=== PATIENT | female | born 1985 | race Caucasian/White ===

== ENCOUNTER 2017-05-02 23:09 | Emergency (ER) | payer BC, MEDICAID ==
--- NOTE | 2017-05-02 23:31 | ED Physician Chart ---
Chief Complaint/HPI - Patient Information Date Seen:: 05/02/17 Time Seen:: 23:20 Chief Complaint:: Abdominal Pain History of Present Illness:: onset x 12 hours of intermittent, crampy, generalized Abdominal pain; pt denies H/As, Neck Pain, C/P, cough, SOB, A/N/V/D/C, bleeding, melena, hematochezia, hematemesis, vaginal bleeding, fever, chills, or urinary s/s; LNMP: one month ago Allergies:: Allergies Allergy/AdvReac Type Severity Reaction Status Date / Time No Known Allergies Allergy Verified 05/02/17 23:20 Vitals:: Vital Signs - 8 hr 05/02/17 23:21 Temp 97.9 F HR 89 RR 17 BP 134/80 O2 Sat % 98 Historian:: Patient, Family Member Review:: Nurse's Note Reviewed Review of Systems - Review of Systems General/Constitutional: Fever, Chills, No weight loss, No weakness, No diaphoresis, No edema, No loss of appetite Skin: No skin lesions, No rash, No bruising Head: No headache, No light-headedness Eyes: No loss of vision, No pain, No diplopia ENT: No earache, No nasal drainage, No sore throat, No tinnitus Neck: No neck pain, No swelling, No thyromegaly, No stiffness, No mass noted Cardio Vascular: No chest pain, No palpitations, No PND, No orthopnea, No edema Pulmonary: No SOB, No cough, No sputum, No wheezing GI: Nausea, Vomiting, Diarrhea, Pain, No melena, No hematochezia, No constipation, No hematemesis G/U: No dysuria, No frequency, No hematuria, No nacturia Human Services Professional: No vaginal discharge, Abnormal vaginal bleeding, No contraction Musculoskeletal: No bone or joint pain, No back pain, No muscle pain Endocrine: No polyuria, No polydipsia Psychiatric: No prior psych history, No depression, No anxiety, No suicidal ideation, No homicidal ideation, No auditory hallucination, No visual hallucination Hematopoietic: No bruising, No lymphadenopathy Allergic/Immuno: No urticaria, No angioedema Neurological: No syncope, No focal symptoms, No weakness, No paresthesia, No headache, No seizure, No dizziness, No confusion, No vertigo Past Medical History - Past Medical History Obtainable: Yes Past Medical History: No significant medical hx Family History: HTN Social History: Non Smoker, No Alcohol, No Drug Use, Surgical History: None Psychiatricy History: None Medication: Reviewed Family Medical History - Family Member Mother History Unknown: Yes Physical Exam - Physical Examination General/Constitutional: Awake, Well-developed, well-nourished, Alert, No distress, GCS 15, Non-toxic appearing, Ambulatory Head: Atraumatic Eyes: Lids, conjuctiva normal, PERRL, EOMI Skin: Nl inspection, No rash, No skin lesions, No ecchymosis, Well hydrated, No lymphadenopathy ENMT: External ears, nose nl, Nasal exam nl, Lips, teeth, gums nl Neck: Nontender, Full ROM w/o pain, No JVD, No nuchal rigidity, No bruit, No mass, No stridor Respiratory: Nl effort/Exclusion, Clear to Auscultation, No Wheeze/Rhonchi/Rales Cardio Vascular: RRR, No murmur, gallop, rubs, NL S1 S2 GI: No tenderness/rebounding/guarding, No organomegaly, No hernia, Normal BS's, Nondistended, No mass/bruits, No McBurney tenderness : No CVA tenderness Other comments:: + RLQ and Right Adnexal Tenderness Extremities: No tenderness or effusion, Full ROM, normal strength in all extremities, No edema, Normal digits & nails Neuro/Psych: Alert/oriented, DTR's symmetric, Normal sensory exam, Normal motor strength, Judgement/insight normal, Mood normal, Normal gait, No focal deficits Misc: normal gait, Normal back, No paraspinal tenderness Labs/Radiology/EKG Results - Lab Results Results: unremarkable - Radiology Results Results: + Right Ectopic and Right Ovarian Cyst ED Septic Shock - . Is Septic Shock (SBP<90, OR Lactate>4 mmol\L) present?: No - <6hrs of presentation: Vital Signs: Vital Signs - 8 hr /06/10 23:21 Temp 97.9 F HR 89 RR 17 BP 134/80 O2 Sat % 98 Reassessment (Disposition) - Reassessment Reassessment Condition:: Improved - Diagnosis Diagnosis:: Ectopic ; Abdominal/Pelvic Pain; Ovarian Cyst - Aftercare/Follow up Instructions Aftercare/Follow-Up Instructions:: Counseled pt regarding lab results/diagnosis & need follow up, Counseled pt & family regarding lab results/diagnosis & need follow up Medication Prescribed:: Pt chose to sign out AMA; pt wants to go to her own hospital preference - Patient Disposition Discharge/Transfer:: Against Medical Advice Condition at Disposition:: Stable (RTER prn if existing s/s reoccur and/or get worse and/or any other new s/s occur; ACIs given for all Dx; Refer to [facility] WORK[facility] Specialist HARESH; F/U with PMD now; RTWER prn if concerned), Improved
[2017-05-02] MEDS ORDERED: Sodium Chloride 0.9% 1,000 ML IV ONE (23:32)
[2017-05-02 23:55] LABS: URINE BILIRUBIN NEGATIVE (NEGATIVE); URINE BLOOD NEGATIVE (NEGATIVE); URINE GLUCOSE (UA) NEGATIVE (NEGATIVE); URINE KETONE TRACE mg/dL (NEGATIVE); URINE PROTEIN NEGATIVE (NEGATIVE)
[2017-05-03] LABS: % LYMPHOCYTES 17.7 % (20.0-50.0); % MONOCYTES 6.5 % (2.0-10.0); % NEUTROPHILS 74.8 % (40.0-80.0); HEMATOCRIT 39.5 % (35.0-45.0); HEMOGLOBIN 13.2 gm/dL (11.7-15.5); MEAN CELL VOLUME 92.7 fl (81-100); MEAN CORPUSCULAR HGB CONC 33.4 pg (28.0-36.0); MEAN PLATELET VOLUME 8.7 fl; NEUTROPHILE ABSOLUTE 7.7 Th/cmm (1.8-8.0); PLATELET COUNT 221 Th/cmm (150-400); RED BLOOD COUNT 4.26 Mil/cmm (3.80-5.10); RED CELL DISTRIBUTION WIDTH 11.9 % (11.5-20.0); WHITE BLOOD COUNT 10.3 Th/cmm (4.8-10.8)
[2017-05-03 00:05] LABS: URINE COLOR YELLOW
[2017-05-03 00:12] LABS: URINE BACTERIA NONE SEEN /hpf (NONE SEEN); URINE EPITHELIAL CELLS NONE SEEN /lpf (FEW); URINE RBC NONE SEEN /hpf (0-5); URINE WBC NONE SEEN /hpf (0-5)
[2017-05-03 00:16] LABS: AMYLASE SERUM 38 U/L (29-103); ANION GAP 7.3 (7.0-16.0); BUN - UREA NITROGEN 12 mg/dL (7-25); BUN/CREATININE RATIO 13.3; CALCIUM SERUM 9.7 mg/dL (8.6-10.3); CARBON DIOXIDE 26.6 mEq/L (21.0-31.0); CHLORIDE 106 mEq/L (98-107); CREATININE - SERUM 0.9 mg/dL (0.6-1.2); GLUCOSE 99 mg/dL (70-105); LIPASE 13 U/L (11-82); POTASSIUM SERUM 3.9 mEq/L (3.5-5.1); SODIUM SERUM 136 mEq/L (136-145)
--- NOTE | 2017-05-03 09:18 | Diagnostic Imaging Report ---
Exam: Pelvic ultrasound HISTORY: Abdominal pain Findings: Real-time ultrasound examination of pelvis performed multiple planes. The study demonstrates uterus measuring 8.0 x 5.1 x 4 cm diameter. The endometrial thickness is 1.7 cm. Right ovarian cyst measuring 1.7 x 2 x 1.6 cm appreciated. Overall diameter right ovary 3.6 x 2.4 x 2.26 x 2.2 cm. Left ovary measures 212.1 x 1.3 x 1.4 cm. Small amount free fluid is noted in cul-de-sac. IMPRESSION: 1. Right ovarian cyst measuring 1.7 x 1.6 x 2 cm diameter. 2. Small amount of free fluid in cul-de-sac. 3. In the overall positive test ectopic gestation can't excluded clinical correlation and serial hCG titers recommended.
== END 2017-05-03 02:15 | disposition left against medical advice (07) ==
LOC: ER 23:09
DX: O00.90 Unspecified ectopic pregnancy without intrauterine pregnancy (principal); N83.201 Unspecified ovarian cyst, right side; R10.84 Generalized abdominal pain
CPT/HCPCS: 36415-UA; 76811-TC; 80048-TC; 81001-TC; 81003-TC; 81025-TC; 82150-TC; 83690-TC; 84702-TC; 84703-TC; 85025-TC; J7030